=== PATIENT | female | born 1985 | race Caucasian/White ===

== ENCOUNTER 2020-06-20 14:21 | Emergency (ER) | payer SELFPAY ==
[2020-06-20 14:51] VITALS: BP 136/97
--- NOTE | 2020-06-20 16:27 | ER Document Report ---
ED General - General Chief Complaint: Cough Stated Complaint: COUGH Notes: Patient is a 34-year-old white female who reports a suspected past medical history of COVID-19 in March. She states she saw the nurse practitioner and feels she contracted the disease but then completely resolved and got over all the symptoms. She states about a week ago she started having a cough. States cough is very dry but severe. Denies any associated symptoms. No upper respiratory c ongestion, fever, chills, night sweats, abdominal pain, vomiting or diarrhea. No reported recent travel. Patient states that she just came for a chest x-ray wanting to ensure that she does not have pneumonia. - Related Data Allergies/Adverse Reactions: No Known Allergies Allergy (Verified 06/20/20 16:48) Past Medical History - Social History Smoking Status: Unknown if Ever Smoked Family History: Reviewed & Not Pertinent Review of Systems - Review of Systems Notes: As per HPI Physical Exam - Vital signs Vitals: Temp Pulse Resp BP Pulse Ox 98.6 F 107 H 16 136/97 H 98 06/20/20 14:45 06/20/20 14:45 06/20/20 14:45 06/20/20 14:45 06/20/20 14:45 - General General appearance: Appears well, Alert In distress: None - Respiratory Respiratory status: No respiratory distress Chest status: Nontender Breath sounds: Normal Chest palpation: Normal - Cardiovascular Rhythm: Regular Heart sounds: Normal auscultation - Extremities General upper extremity: No: Edema General lower extremity: No: Edema - Neurological Neuro grossly intact: Yes Cognition: Normal Orientation: AAOx4 Thompson Coma Scale Eye Opening: Spontaneous Deanna Coma Scale Verbal: Oriented Deanna Coma Scale Motor: Obeys Commands Deanna Coma Scale Total: 15 Speech: Normal - Psychological Associated symptoms: Normal affect, Normal mood - Skin Skin Temperature: Warm Skin Moisture: Dry Skin Color: Normal Course - Re-evaluation Re-evalutation: 06/20/20 16:26 Discussed with patient that because she is in the COVID section and is billed that the protocol currently is to do a single view chest not a 2 view. She states that she is okay with this. 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 She declines any other work-up or evaluation. 06/20/20 18:02 Chest x-ray negative for acute process per radiologist. 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 She did request guaifenesin/hydrocodone cough syrup to help her sleep with the cough and promethazine for nausea. I offered to give her a combination promethazine codeine cough syrup and she declined specifically wanting them . This is slightly suspicious but I evaluated the patient's [place] prescription drug monitoring record and she does show that she received controlled substances regularly but not for opioid medications. It was noted that she is on benzodiazepines. Due to this she will only be given a very low-dose short course of the cough medications as there is risk of decreased [employer] effects with a combination of the 2. With Phenergan added on it would likely increase the risk of sedation and [employer] depression. Again the patient has a medical provider and is very knowledgeable of this. We discussed the importance of outpatient follow-up. She states that she is concerned given the cough but does not want any further work-up here that she will seek out consultation with pulmonology and cardiology going forward. Marily santos discussed the importance of outpatient follow-up and advised that she return here any ER immediately with any new, persistent or worsening symptoms. She verbalized understood and agreed. - Vital Signs Vital signs: Temp Pulse Resp BP Pulse Ox 98.6 F 107 H 16 136/97 H 98 06/20/20 16:43 06/20/20 14:45 06/20/20 14:45 06/20/20 14:45 06/20/20 14:45 Discharge - Discharge Clinical Impression: Cough Condition: Stable Disposition: HOME, SELF-CARE Instructions: Cough Suppressant & Expectorant Medications, Oral Narcotic Medication ([facility]) Additional Instructions: Follow-up with your regular doctor in 2 to 3 days for reevaluation. Return here or any ER immediately with any new, persistent or worsening symptoms. Prescriptions: Guaifenesin/Hydrocodone [[place] 2.5-200 mg/5 ml Soln] 5 ml PO Q6 #60 ml Promethazine HCl [Phenergan 25 mg Tablet] 25 mg PO Q6 PRN #20 tablet PRN Reason:
--- NOTE | 2020-06-20 17:28 | RADIOLOGY REPORT (SQ) ---
EXAM DESCRIPTION: CHEST SINGLE VIEW IMAGES COMPLETED DATE/TIME: 06/20/2020 5:10 pm REASON FOR STUDY: cough COMPARISON: None. EXAM PARAMETERS: NUMBER OF VIEWS: One view. TECHNIQUE: Single frontal radiographic view of the chest acquired. RADIATION DOSE: NA LIMITATIONS: None. FINDINGS: LUNGS AND PLEURA: Low lung volumes. No opacities, masses or pneumothorax. No pleural eff usion. MEDIASTINUM AND HILAR STRUCTURES: No masses. Contour normal. HEART AND VASCULAR STRUCTURES: Heart normal in size. Normal vasculature. BONES: No acute findings. HARDWARE: None in the chest. OTHER: No other significant finding. IMPRESSION: 1. NO ACUTE RADIOGRAPHIC FINDING IN THE CHEST. TECHNICAL DOCUMENTATION: JOB ID: [id number] [employer]- All Rights Reserved Reading location - IP/workstation name: [email or web address]
== END 2020-06-20 18:44 | disposition home or self-care (01) ==
LOC: ER 14:21
DX: R05 Cough (principal); Z79.899 Other long term (current) drug therapy
CPT/HCPCS: 71045; 99283